=== PATIENT | female | born 1990 ===

== ENCOUNTER 2016-06-28 09:14 | Emergency (ER) | payer OTHER ==
[2016-06-28 09:21] VITALS: TEMP 97
[2016-06-28 09:22] VITALS: BMI 25.8
--- NOTE | 2016-06-28 09:41 | ED PDOC ---
HPI: Female Pain Time Seen by Provider: 06/28/16 09:26 Chief Complaint (Nursing): Abdominal Pain History Per: Patient History/Exam Limitations: no limitations Onset/Duration Of Symptoms: Gradual (today) Current Symptoms Are (Timing): Still Present Severity: Mild Quality Of Discomfort: Dull, Cramping Associated Symptoms: denies: Fever, Chills, Nausea, Vomiting, Diarrhea, Back Pain, Chest Pain, Constipation, Urinary Symptoms Alleviating Factors: None Additional History Per: Patient Additional Complaint(s): acc to pt she woke up with abd cramping then started to noticed vaginal bleeding pink then became bright red. pt states she is 8 weeks Past Medical History Reviewed: Historical Data, Nursing Documentation, Vital Signs Vital Signs: Last Vital Signs Temp 97 F L 06/28/16 09:20 Pulse 96 H 06/28/16 09:20 Resp BP 127/69 06/28/16 09:20 Pulse Ox 98 06/28/16 09:25 - Medical History PMH: Asthma, Depression Denies: Chronic Kidney Disease - Family History Family History: States: Unknown Family Hx - Living Arrangements Living Arrangements: With Family - Social History Current smoker - smoking cessation education provided: No - Immunization History Hx Tetanus Toxoid Vaccination: Yes (less than 5 years) Hx Influenza Vaccination: No Hx Pneumococcal Vaccination: No - Home Medications Home Medications: Ambulatory Orders Medication Instructions Recorded No Known Home Med 05/31/16 - Allergies Allergies/Adverse Reactions: Allergies Allergy/AdvReac Type Severity Reaction Status Date / Time Iodine and Iodide Containing Allergy VOMITING Verified 06/28/16 09:25 Produc Review of Systems ROS Statement: Except As Marked, All Systems Reviewed And Found Negative Constitutional: Negative for: Fever, Chills Cardiovascular: Negative for: Chest Pain, Palpitations Respiratory: Negative for: Cough Gastrointestinal: Negative for: Nausea, Vomiting, Abdominal Pain Genitourinary Female: Positive for: Vaginal Bleeding, Pelvic Pain. Negative for : Vaginal Discharge Physical Exam - Reviewed Nursing Documentation Reviewed: Yes Vital Signs Reviewed: Yes - Physical Exam Appears: Positive for: Well, No Acute Distress Head Exam: Positive for: ATRAUMATIC, NORMAL INSPECTION, NORMOCEPHALIC Eye Exam: Positive for: Normal appearance Neck: Positive for: Normal, Painless ROM, Supple Cardiovascular/Chest: Positive for: Regular Rate, Rhythm. Negative for: Edema, Murmur, Bradycardia, Tachycardia Respiratory: Positive for: Normal Breath Sounds. Negative for: Decreased Breath Sounds, Accessory Muscle Use, Crackles, Rales, Rhonchi, Stridor, Wheezing Gastrointestinal/Abdominal: Positive for: Normal Exam, Bowel Sounds, Soft. Negative for: Tenderness, Organomegaly Back: Positive for: Normal Inspection. Negative for: L CVA Tenderness, R CVA Tenderness, Vertebral Tenderness Extremity: Positive for: Normal ROM. 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 Negative for: Motor/Sensory Deficits - Laboratory Results Result Diagrams: 06/28/16 09:40 06/28/16 09:40 - ECG O2 Sat by Pulse Oximetry: 98 Pulse Ox Interpretation: Normal - Progress ED Course And Treament: IMPRESSION: Single live intrauterine gestation of approximately 8 weeks 3 days gestational age. No subchorionic hemorrhage. Normal yolk sac. heart rate 162. Cervix closed. advise close f/u with ob. all of pt's question were answered and pt agree's with plan Re-evaluation Time: 11:17 Condition: Improved Medical Decision Making Medical Decision Making: a positive Disposition - Clinical Impression Clinical Impression: Threatened - Patient ED Disposition Is Patient to be Admitted: No Counseled Patient/Family Regarding: Studies Performed, Diagnosis, Need For Followup - Disposition [facility] (2 to 3 days) Disposition: Routine/Home Disposition Time: 11:18 Condition: GOOD Instructions: Threatened Miscarriage (ED)
[2016-06-28 09:50] LABS: BASO % 0.3 % (0.0-2.0); EOS % 0.3 % (0.0-4.0); HEMATOCRIT 37.4 % (34.0-47.0); LYMPH # 2.1 K/uL (1.0-4.3); LYMPH % 20.7 % (20.0-40.0); MEAN CELL VOLUME 94.4 fl (81.0-99.0); MEAN CORPUSCULAR HEMOGLOBIN 31.2 pg (27.0-31.0); MEAN CORPUSCULAR HGB CONC 33.1 g/dL (33.0-37.0); MEAN PLATELET VOLUME 11.1 fl (7.2-11.7); MONO # 0.5 K/uL (0.0-0.8); MONO % 5.1 % (0.0-10.0); NEUT # 7.5 K/uL (1.8-7.0); NEUT % 73.6 % (50.0-75.0); RED CELL DISTRIBUTION WIDTH 12.5 % (11.5-14.5); WHITE BLOOD COUNT 10.2 K/uL (4.8-10.8)
[2016-06-28 09:58] LABS: ALB/GLOB RATIO 1.3 (1.0-2.1); ALKALINE PHOSPHATASE 47 U/L (38-126); ALT/SGPT 19 U/L (9-52); AST/SGOT 21 U/L (14-36); BILIRUBIN,TOTAL 0.5 mg/dl (0.2-1.3); BLOOD UREA NITROGEN 6 mg/dl (7-17); CALCIUM 9.3 mg/dL (8.4-10.2); CARBON DIOXIDE 24 mmol/L (22-30); CHLORIDE 105 mmol/L (98-107); GFR AFRICAN-AMERICAN > 60; GLUCOSE,RANDOM 85 mg/dL (65-105); POTASSIUM 3.8 MMOL/L (3.6-5.0); SODIUM 141 mmol/l (132-148); TOTAL PROTEIN 7.3 G/DL (6.3-8.2)
[2016-06-28 10:04] LABS: PARTIAL THROMBOPLASTIN TIME 26.8 SECONDS (23.3-32.5)
[2016-06-28 10:11] LABS: URINE BILIRUBIN NEGATIVE (NEGATIVE); URINE BLOOD SMALL (NEGATIVE); URINE COLOR YELLOW (YELLOW); URINE GLUCOSE (UA) NEG (Normal); URINE KETONE NEGATIVE (NEGATIVE); URINE LEUKOCYTE ESTERASE NEG Leu/uL (Negative); URINE PROTEIN 30 mg/dL (NEGATIVE); URINE UROBILINOGEN 0.2-1.0 mg/dL (0.2-1.0); WBC URINE 1 /hpf (0-5)
--- NOTE | 2016-06-28 11:03 | US ---
PROCEDURE: OB Pelvic Ultrasound HISTORY: vag bleed r/o ectopic COMPARISON: None available. FINDINGS: UTERUS: Single Live intrauterine gestation. CRL equivalent to 8 weeks 3 days gestatioin Gestational sac diameter equivalent to 8 weeks 2 days gestation age (Ultrasound estimated): 8 weeks 3 days Date of delivery (Ultrasound estimated) : 02/04/2017 Heart rate: 163 bpm. Jenny-gestational hemorrhage: None. 4 mm yolk sac visualized. Uterus measures 11.0 x 5.5 x 7.7 cm. No mass CERVIX: Long and closed. No cervical abnormality seen. RIGHT OVARY: Measures 3.7 x 1.7 x 2.6 cm. No mass. Normal flow. LEFT OVARY: Not visualized. FREE FLUID: Small amount of free fluid noted in cul-de-sac. OTHER FINDINGS: None. IMPRESSION: Single live intrauterine gestation of approximately 8 weeks 3 days gestational age. No subchorionic hemorrhage. Normal yolk sac. heart rate 162. Cervix closed.
[2016-06-28 12:17] VITALS: BP 126/78; PULSE 87; RESP 18; O2SAT 99
== END 2016-06-28 12:16 | disposition home or self-care (01) ==
LOC: H.ER 09:14
DX: O20.0 Threatened abortion (principal); O20.9 Hemorrhage in early pregnancy, unspecified; Z3A.08 8 weeks gestation of pregnancy

== ENCOUNTER 2016-09-09 08:24 | Emergency (ER) | payer OTHER ==
[2016-09-09] MEDS: Lactated Ringer's 1,000 ML IV SCH ×2 (09:30→11:14)
[2016-09-09 10:09] LABS: BASO % 0.3 % (0.0-2.0); EOS % 0.4 % (0.0-4.0); HEMATOCRIT 28.2 % (34.0-47.0); LYMPH # 1.5 K/uL (1.0-4.3); LYMPH % 16.3 % (20.0-40.0); MEAN CELL VOLUME 93.4 fl (81.0-99.0); MEAN CORPUSCULAR HEMOGLOBIN 31.9 pg (27.0-31.0); MEAN CORPUSCULAR HGB CONC 34.2 g/dL (33.0-37.0); MEAN PLATELET VOLUME 10.7 fl (7.2-11.7); MONO # 0.5 K/uL (0.0-0.8); MONO % 5.7 % (0.0-10.0); NEUT # 6.9 K/uL (1.8-7.0); NEUT % 77.3 % (50.0-75.0)
--- NOTE | 2016-09-09 10:26 | OBHP ---
Datetime: 09/09/2016 10:00 IP Adm Impression: , intrauterine ; No Active Labor IP Admit Plan: Observation/Evaluation; Discharge home Admit Comment, IP Provider: The patient is a 26-year-old 2 para 1 last menstrual period 07/2016 estimated gestational age 19 weeks estimated due date 01/31/2017 patient presents to labor and delivery complaining of abdominal cramps for 24 hours duration patient denies any vaginal bleeding o r any leakage of fluid she reports good movement. Patient denies any complications. Past medical history asthma and depression Medications vitamins albuterol Lexapro Past surgical history patient had foot surgery Patient is allergic to iodine Social history patient denies alcohol tobacco use Review of systems patient denies headache chest pain shortness of breath palpitations nausea vomit ing diarrhea dysuria vaginal bleeding or cold intolerance easy bruisability musculoskeletal Cerner ne urological complaints Vital signs stable afebrile Physical exam see notes Intrauterine at 19 weeks abdominal cramps Most likely round ligament discomfort Medical records reviewed from Dr. [place] office Urine analysis and lab work sent Tocometer Anticipate discharge Plan of care discussed with PMD Dr. Sandoval Seo Pelvic Type - PN: Adequate Extremities - PN: Normal Abdomen - PN: Normal Back - PN: Normal Breast - PN: Normal Lungs - PN: Normal Heart - PN: Normal Thyroid - PN: Normal Neurologic - PN: Normal HEENT - PN: Normal General - PN: Normal FHR - Baseline A Provider: 145 Gestation - Est Wks by US: 19.0 EGA AdmitDate IP: 19.3 Vital Signs Provider: Reviewed IP Chief Complaint: Maternal discomfort NICHD Decel Fetus A IP Provider: None Dilatation, Provider: 0 Effacement, Provider: 0 Station, Provider: 0 Genitourinary Exam: Normal DTRs - PN: Normal
[2016-09-09 10:28] LABS: ALB/GLOB RATIO 1.3 (1.0-2.1); ALKALINE PHOSPHATASE 54 U/L (38-126); ALT/SGPT 43 U/L (9-52); AST/SGOT 33 U/L (14-36); BILIRUBIN,TOTAL 0.3 mg/dl (0.2-1.3); BLOOD UREA NITROGEN 3 mg/dl (7-17); CALCIUM 9.2 mg/dL (8.4-10.2); CARBON DIOXIDE 23 mmol/L (22-30); CHLORIDE 105 mmol/L (98-107); GFR AFRICAN-AMERICAN > 60; GLUCOSE,RANDOM 77 mg/dL (65-105); POTASSIUM 3.6 MMOL/L (3.6-5.0); RBC URINE 4 /hpf (0-3); SODIUM 136 mmol/l (132-148); TOTAL PROTEIN 6.8 G/DL (6.3-8.2); URINE BILIRUBIN NEGATIVE (NEGATIVE); URINE BLOOD NEGATIVE (NEGATIVE); URINE COLOR AMBER (YELLOW); URINE GLUCOSE (UA) NEG (Normal); URINE KETONE NEGATIVE (NEGATIVE); URINE LEUKOCYTE ESTERASE NEG Leu/uL (Negative); URINE PROTEIN 30 mg/dL (NEGATIVE); URINE UROBILINOGEN 0.2-1.0 mg/dL (0.2-1.0); WBC URINE 9 /hpf (0-5)
[2016-09-09 10:31] LABS: URINE BACTERIA RARE (<OCC)
== END 2016-09-09 11:15 | disposition home or self-care (01) ==
LOC: H.EROB2 08:24 → H.EROB 08:25 → H.EROB2 11:15
DX: O26.92 Pregnancy related conditions, unspecified, second trimester (principal); R10.2 Pelvic and perineal pain; O47.03 False labor before 37 completed weeks of gestation, third trimester; Z3A.19 19 weeks gestation of pregnancy

== ENCOUNTER 2016-09-19 17:02 | Emergency (ER) | payer OTHER ==
[2016-09-22 18:45] LABS: HEMOGLOBIN 8.9 g/dL (12.0-16.0); MEAN CELL VOLUME 93.3 fl (81.0-99.0); MEAN CORPUSCULAR HEMOGLOBIN 31.5 pg (27.0-31.0); MEAN CORPUSCULAR HGB CONC 33.8 g/dL (33.0-37.0); RBC 2.84 Mil/uL (3.80-5.20); RED CELL DISTRIBUTION WIDTH 13.3 % (11.5-14.5); WHITE BLOOD COUNT 9.3 K/uL (4.8-10.8)
[2016-09-23 17:24] VITALS: BMI 21.6
--- NOTE | 2016-09-24 06:44 | CARD ---
APPROVED REPORT EKG Measurement Heart [id number] <Conclusion> Normal sinus rhythm Low voltage QRS Borderline ECG
--- NOTE | 2016-09-28 15:18 | OBHP ---
Datetime: 09/19/2016 18:52 IP Adm Impression: , intrauterine ; No Active Labor IP Admit Plan: Observation/Evaluation Admit Comment, IP Provider: This is a 26 y/o with a PMHx of asthma edc 01/31 at 20 weeks GA as per 1st trimester US presenting with SOB and palpitations that began 2 hours ago. SOB is alleviating after use of Albuterol pump. Pt had this episode while seated at desk. She denies increased physical activity today. Pt reports last use of inhaler prior to today was 2 months ago. No vaginal bleeding, no LOF, no ctx, taking PNV. Pt denies CP, headache,syncope, focal weakness, parasthesias. Medications: albuterol PRN Allergies: Iodine. PMHx: asthma-usually activity induced, depression and anxiety. PSHx: unspecified foot surgery. 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 1 . Several syncopal episodes during l ast with NO urinary sphincter control or tongue bitten. SHx: smoker, NO alcohol or recreational drugs. Assesment: 26 y.o. with SOB and palpitations. Pt used Albuterol which could be exacerbating p alpitations. Plan: EKG ordered, results unremarkable,normal sinus rhythm , 93 bpm. CBC ordered. cont monitoring Pt will be observed in [facility] d/w Dr Mira Santoyo PGY1 [facility] addendum: pt seen _ examined by me. Agree with abve with following additions. Denies syncopal episodes with current preg. She denies bladder or bowel incontinence associated with syncopal episode experienced in past. o: hgb 8.9 p: pt d/w dr sandoval. d/c home Fe supplem bid f/u within 1wk with Dr. Sandoval. Extremities - PN: Normal Abdomen - PN: Normal Lungs - PN: Normal Heart - PN: Normal Neurologic - PN: Normal HEENT - PN: Normal General - PN: Normal FHR - Baseline A Provider: 150 Contraction Comments Provider: no EGA AdmitDate IP: 20.6 IP Chief Complaint: Other NICHD Decel Fetus A IP Provider: None Genitourinary Exam: Normal
== END 2016-09-19 23:00 | disposition home or self-care (01) ==
LOC: H.EROB2 17:02
DX: O47.02 False labor before 37 completed weeks of gestation, second trimester (principal); Z3A.21 21 weeks gestation of pregnancy; O26.92 Pregnancy related conditions, unspecified, second trimester; R06.02 Shortness of breath; J45.909 Unspecified asthma, uncomplicated

== ENCOUNTER 2017-10-03 16:41 | Emergency (ER) | payer OTHER ==
[2017-10-03 16:41] VITALS: BMI 27.9
[2017-10-03] MEDS ORDERED: Sodium Chloride 0.9% 1,000 ML IV STA (17:02)
--- NOTE | 2017-10-03 17:06 | ED PDOC ---
HPI: Headache Time Seen by Provider: 10/03/17 16:53 Chief Complaint (Nursing): Headache Chief Complaint (Provider): Headache History Per: Patient History/Exam Limitations: no limitations Onset/Duration Of Symptoms: Days (Wednesday) Current Symptoms Are (Timing): Still Present Additional Complaint(s): Pt. with headaches and dizziness since Wednesday. Also fever. Takes motrin and tylenol, that reduce it, but it comes back. No numbness, tingles. No abd pain , dysuria. No cough, runny nose. Has neck pain mild on moving neck and body aches. Headaches not worst in her life. Past Medical History Reviewed: Nursing Documentation, Vital Signs Vital Signs: Last Vital Signs Temp 102 F H 10/03/17 16:44 Pulse 121 H 10/03/17 16:44 Resp 22 10/03/17 16:44 BP 116/72 10/03/17 16:44 Pulse Ox 97 10/03/17 16:44 - Medical History PMH: Asthma, Depression Denies: Diabetes, HTN, Chronic Kidney Disease - Surgical History Surgical History: No Surg Hx - Family History Family History: States: Unknown Family Hx - Living Arrangements Living Arrangements: With Family - Social History Alcohol: None Drugs: Denies - Immunization History Hx Tetanus Toxoid Vaccination: Yes (less than 5 years) Hx Influenza Vaccination: No Hx Pneumococcal Vaccination: No - Home Medications Home Medications: Ambulatory Orders Medication Instructions Recorded Pnv No.95/Ferrous Fum/Folic AC [Hm 01/23/17 Tablet] Ibuprofen [Motrin Tab] 800 mg PO Q4H PRN #30 tab 01/27/17 Ciprofloxacin HCl [Cipro] 250 mg PO BID #6 tab 10/03/17 Ibuprofen [Motrin] 600 mg PO TID 7 Days tab 10/03/17 - Allergies Allergies/Adverse Reactions: Allergies Allergy/AdvReac Type Severity Reaction Status Date / Time Iodine and Iodide Containing Allergy VOMITING Verified 10/03/17 16:44 Produc Review of Systems ROS Statement: Except As Marked, All Systems Reviewed And Found Negative Constitutional: Positive for: Fever Musculoskeletal: Positive for: Neck Pain Neurological: Positive for: Headache, Dizziness Physical Exam - Reviewed Nursing Documentation Reviewed: Yes Vital Signs Reviewed: Yes - Physical Exam Appears: Positive for: Non-toxic, No Acute Distress Head Exam: Positive for: ATRAUMATIC, NORMAL INSPECTION, NORMOCEPHALIC Skin: Positive for: Normal Color, Warm, DRY Eye Exam: Positive for: EOMI, Normal appearance, PERRL ENT: Positive for: Normal ENT Inspection. Negative for: Nasal Congestion, Pharyngeal Erythema, Tonsillar Exudate Neck: Negative for: Painless ROM (pain on movement mild) Cardiovascular/Chest: Positive for: Regular Rate, Rhythm Respiratory: Positive for: CNT, Normal Breath Sounds Gastrointestinal/Abdominal: Positive for: Normal Exam, Bowel Sounds, Soft. Negative for: Tenderness Back: Positive for: Normal Inspection. Negative for: L CVA Tenderness, R CVA Tenderness Extremity: Positive for: Normal ROM. 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 Negative for: Motor/Sensory Deficits, Aphasia, Facial Droop - Laboratory Results Result Diagrams: 10/03/17 17:28 10/03/17 17:28 - ECG O2 Sat by Pulse Oximetry: 97 Pulse Ox Interpretation: Normal - Radiology X-Ray: Interpreted by Me, Viewed By Me X-Ray Interpretation: No Acute Disease - CT Scan/US ct Other Rad Studies (CT/US): Read By Radiologist Other Rad Interpretation: no acute - Progress ED Course And Treament: 2047: No headache or neck pain. AAOx3. Has capacity to make decisions. Pain free. Tolerated PO. Does admit to increased freq of urination. Aware unclear source of headache she had. She is refusing LP at this time. Aware we can't rule out bleeding or meningitis without the LP. She understands possible or decreased functioning from it these causes. She still refuses and will come back if she chooses to have it done. Disposition - Clinical Impression Clinical Impression: UTI (urinary tract infection), Headache - Patient ED Disposition Is Patient to be Admitted: No Counseled Patient/Family Regarding: Studies Performed, Diagnosis, Need For Followup, Rx Given - Disposition Referrals: [facility] [Outside] - 10/04/17 Disposition: Routine/Home Disposition Time: 20:54 Condition: STABLE Additional Instructions: You are refusing to get a lumbar puncture at this time. Come back soon as possible for further evaluation and treatment. We are not able to rule out if you have a bleed in the head or meningitis. You can or decreased functioning from it. We will give you antibiotics for the urine infection you have. Prescriptions: Ciprofloxacin HCl [Cipro] 250 mg PO BID #6 tab Ibuprofen [Motrin] 600 mg PO TID 7 Days tab Instructions: Urinary Tract Infection, Adult (DC), Headache, Adult Forms: [facility] (Croatian), [facility] ED School/Work Excuse
[2017-10-03 17:38] LABS: VENOUS BLOOD GAS BASE EXCESS -1.1 mmol/L (0.0-2.0); VENOUS BLOOD GAS PCO2 42 mmHg (40-60); VENOUS BLOOD GAS PO2 24 mm/Hg (30-55); VENOUS BLOOD PH 7.37 (7.32-7.43)
[2017-10-03 17:38] LABS: BASO % 0.2 % (0.0-2.0); HEMOGLOBIN 12.3 g/dL (12.0-16.0); LYMPH % 9.4 % (20.0-40.0); MEAN CELL VOLUME 92.8 fl (81.0-99.0); MEAN CORPUSCULAR HGB CONC 34.5 g/dL (33.0-37.0); MEAN PLATELET VOLUME 10.5 fl (7.2-11.7); MONO # 0.7 K/uL (0.0-0.8); MONO % 6.5 % (0.0-10.0); NEUT # 8.8 K/uL (1.8-7.0); NEUT % 83.9 % (50.0-75.0); PLATELET COUNT 188 K/uL (130-400); RBC 3.86 Mil/uL (3.80-5.20); RED CELL DISTRIBUTION WIDTH 12.6 % (11.5-14.5); WHITE BLOOD COUNT 10.5 K/uL (4.8-10.8)
[2017-10-03 17:43] LABS: ALB/GLOB RATIO 1.2 (1.0-2.1); ALBUMIN 4.4 g/dL (3.5-5.0); ALT/SGPT 21 U/L (9-52); AST/SGOT 25 U/L (14-36); BLOOD UREA NITROGEN 11 mg/dl (7-17); CALCIUM 9.4 mg/dL (8.4-10.2); GFR AFRICAN-AMERICAN > 60; GFR NON-AFRICAN AMERICAN > 60
[2017-10-03 19:29] LABS: SQUAMOUS EPITHIAL 9 /hpf (0-5); URINE BILIRUBIN NEGATIVE (NEGATIVE); URINE BLOOD NEGATIVE (NEGATIVE); URINE CLARITY CLOUDY (Clear); URINE COLOR AMBER (YELLOW); URINE GLUCOSE (UA) NEG (Normal); URINE LEUKOCYTE ESTERASE MOD Leu/uL (Negative); URINE PROTEIN 30 mg/dL (NEGATIVE)
[2017-10-03 19:40] LABS: BANDS 6 % (0-2); LYMPHOCYTE 9 % (20-50); MONOCYTE 2 % (0-10); MYELOCYTE 2 % (0-0); NEUTROPHIL 80 % (42-75); REACTIVE LYMPHOCYTES 1 % (0-0); TOTAL CELLS COUNTED 100
[2017-10-03 19:41] LABS: PLATELET ESTIMATE NORMAL (NORMAL)
[2017-10-03 21:18] VITALS: TEMP 98.7
[2017-10-03 21:35] VITALS: BP 131/77; PULSE 88; RESP 16; O2SAT 99
--- NOTE | 2017-10-04 08:24 | RAD ---
Date of service: 10/03/2017 HISTORY: fever COMPARISON: 04/07/2015. FINDINGS: LUNGS: The lungs are well inflated and clear pulmonary disease. PLEURA: No significant pleural effusion identified, no pneumothorax apparent. CARDIOVASCULAR: Normal. OSSEOUS STRUCTURES: No significant abnormalities. VISUALIZED UPPER ABDOMEN: Normal. OTHER FINDINGS: None. IMPRESSION: No active pulmonary disease.
--- NOTE | 2017-10-04 09:12 | CT ---
Date of service: 10/03/2017 PROCEDURE: CT HEAD WITHOUT CONTRAST. HISTORY: Headache COMPARISON: 04/07/2015. TECHNIQUE: Axial computed tomography images were obtained through the head/brain without intravenous contrast. Radiation dose: Total exam DLP = 745.42 mGy-cm. This CT exam was performed using one or more of the following dose reduction techniques: Automated exposure control, adjustment of the mA and/or kV according to patient size, and/or use of iterative reconstruction technique. FINDINGS: HEMORRHAGE: No intracranial hemorrhage. BRAIN: Ash-white matter differentiation is preserved. There is no mass, mass effect or abnormal extra-axial fluid collection. There is no territorial infarction. The midline sagittal structures are normal. VENTRICLES: The ventricles are normal in size, shape and configuration. CALVARIUM: The skull base and calvarium are normal. PARANASAL SINUSES: Predominantly clear. MASTOID AIR CELLS: Predominantly clear. OTHER FINDINGS: None. IMPRESSION: No acute intracranial abnormality. A preliminary report was provided by [employer] [facility].
== END 2017-10-03 21:35 | disposition home or self-care (01) ==
LOC: H.ER 16:41
DX: N39.0 Urinary tract infection, site not specified (principal); R51 Headache
CPT/HCPCS: 70450; 71045; 80053; 81003; 81025; 82803; 85025; 87040; 87070; 87086; 87181; 87430; 87804; 96374; 99285; J2765; J7030

== ENCOUNTER 2018-04-08 09:24 | Emergency (ER) | payer OTHER ==
[2018-04-08 09:24] VITALS: BMI 27.9
[2018-04-08 09:56] VITALS: RESP 18
--- NOTE | 2018-04-08 10:34 | ED PDOC ---
HPI: Abdomen Additional Complaint(s): This is 27 y/o female with no significant PMH comes to the ER c/o diarrhea, vomiting and burning b/l Lower abdo pain. As per patient, NB diarrhea and buring abdo pain started 3 days ago, >5x loose diarrheas/day and 7/10 constant burning in lower abdomen, poor appetite. Reports 6 episodes of NBNB vomiting since last night which prompted patient to come to the ER. 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 Denies dysuria, SOB, cough, congestion or chest pain. reports chills but no fever. PMH: Asthma PSH: 2x c-sections Meds: Denies Allg: Iodine SH: Denies alcohol, smoking or drug use FH: Denies any cancers or ND/Stroke ROS: As per HPI <Simeon Aguayo - Last Filed: 04/08/18 12:48> Additional Complaint(s): Vomit and diarrhea. Burning abd. 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 <Zi Dolan - Last Filed: 04/08/18 13:51> Time Seen by Provider: 04/08/18 10:07 Chief Complaint (Nursing): Abdominal Pain Past Medical History Vital Signs: Last Vital Signs Temp 98.5 F 04/08/18 09:55 Pulse 91 H 04/08/18 09:55 Resp 18 04/08/18 09:55 BP 137/57 L 04/08/18 09:55 Pulse Ox 97 04/08/18 09:55 - Medical History PMH: Asthma, Depression Denies: Diabetes, HTN, Chronic Kidney Disease - Family History Family History: States: Unknown Family Hx - Immunization History Hx Tetanus Toxoid Vaccination: Yes (less than 5 years) Hx Influenza Vaccination: No Hx Pneumococcal Vaccination: No <Simeon Aguayo - Last Filed: 04/08/18 12:48> Vital Signs: Last Vital Signs Temp 98.5 F 04/08/18 09:55 Pulse 91 H 04/08/18 09:55 Resp 18 04/08/18 09:55 BP 137/57 L 04/08/18 09:55 Pulse Ox 97 04/08/18 12:49 <Zi Dolan - Last Filed: 04/08/18 13:51> - Home Medications Home Medications: Ambulatory Orders Medication Instructions Recorded Pnv No.95/Ferrous Fum/Folic AC [Hm 01/23/17 Tablet] Ibuprofen [Motrin Tab] 800 mg PO Q4H PRN #30 tab 01/27/17 Ciprofloxacin HCl [Cipro] 250 mg PO BID #6 tab 10/03/17 Ibuprofen [Motrin] 600 mg PO TID 7 Days tab 10/03/17 Famotidine [Pepcid] 20 mg PO DAILY PRN #6 tab 04/08/18 Ondansetron [Zofran] 4 mg PO Q8H PRN #6 tab 04/08/18 - Allergies Allergies/Adverse Reactions: Allergies Allergy/AdvReac Type Severity Reaction Status Date / Time Iodine and Iodide Containing Allergy VOMITING Verified 04/08/18 09:57 Produc Review of Systems Constitutional: Negative for: Fever, Chills, Sweats Eyes: Negative for: Pain ENT: Negative for: Ear Pain, Ear Discharge, Nose Pain Cardiovascular: Negative for: Chest Pain, Palpitations Respiratory: Negative for: Cough, Shortness of Breath Gastrointestinal: Positive for: Nausea, Vomiting, Abdominal Pain (Burning ), Diarrhea Genitourinary Female: Negative for: Dysuria, Vaginal Discharge Musculoskeletal: Negative for: Neck Pain Skin: Negative for: Rash Neurological: Negative for: Weakness, Numbness <Simeon Aguayo - Last Filed: 04/08/18 12:48> Physical Exam - Physical Exam Appears: Positive for: Well, No Acute Distress Head Exam: Positive for: NORMAL INSPECTION Skin: Positive for: Normal Color, Warm Eye Exam: Positive for: Normal appearance ENT: Positive for: Normal ENT Inspection Neck: Positive for: Normal Cardiovascular/Chest: Positive for: Regular Rate, Rhythm Respiratory: Positive for: Normal Breath Sounds. Negative for: Decreased Breath Sounds, Accessory Muscle Use Gastrointestinal/Abdominal: Positive for: Normal Exam, Bowel Sounds (+), Soft. Negative for: Tenderness Back: Positive for: Normal Inspection. Negative for: L CVA Tenderness, R CVA Tenderness Extremity: Positive for: Normal ROM Neurologic/Psych: Positive for: Alert, Oriented <Simeon Aguayo - Last Filed: 04/08/18 12:48> - Physical Exam Gastrointestinal/Abdominal: Positive for: Soft. Negative for: Tenderness <Zi Dolan - Last Filed: 04/08/18 13:51> - Laboratory Results Result Diagrams: 04/08/18 11:25 04/08/18 11:25 - ECG O2 Sat by Pulse Oximetry: 97 - Progress ED Course And Treament: A/P: 27 y/o female with no significant PMH comes to the ER c/o diarrhea, vomiting and burning b/l Lower abdo pain. Viral gastroenteritis. - CBC, CMP, Lipase - U preg, UA - Bentyl, Pepcid, Toradol, 1 L NSR, Zofran - Influenza A/B - Reexamination Case discussed with Dr. Dolan CBC, CMP, UA reviewed: WNL Negative Influenza Re-evaluation Time: 12:48 (Still c/o burning abdominal pain) Condition: Improving,but remains with symptoms <Simeon Aguayo - Last Filed: 04/08/18 12:48> - Laboratory Results Result Diagrams: 04/08/18 11:25 04/08/18 11:25 Lab Results: Total Bilirubin 0.7 mg/dl (0.2-1.3) 04/08/18 11:25 AST 21 U/L (14-36) 04/08/18 11:25 ALT 23 U/L (9-52) 04/08/18 11:25 Alkaline Phosphatase 76 U/L (38-126) 04/08/18 11:25 Total Protein 8.4 G/DL (6.3-8.2) H 04/08/18 11:25 Albumin 4.8 g/dL (3.5-5.0) 04/08/18 11:25 Globulin 3.6 gm/dL (2.2-3.9) 04/08/18 11:25 Albumin/Globulin Ratio 1.3 (1.0-2.1) 04/08/18 11:25 Lipase 45 U/L (23-300) 04/08/18 11:25 - Progress ED Course And Treament: 1351: Feels much better. AAOx3. Pain free. Tolerated PO. Fu with pcp. No pain. <Zi Dolan - Last Filed: 04/08/18 13:51> Disposition <Simeon Aguayo - Last Filed: 04/08/18 12:48> Counseled Patient/Family Regarding: Studies Performed, Diagnosis - Disposition Disposition Time: 13:51 <Zi Dolan - Last Filed: 04/08/18 13:51> - Clinical Impression Clinical Impression: Abdominal cramps, Vomiting and diarrhea - Disposition Referrals: [facility] [Outside] - 04/11/18 Condition: STABLE Additional Instructions: Return if not better in 3 days. Prescriptions: Famotidine [Pepcid] 20 mg PO DAILY PRN #6 tab PRN Reason: Pain Ondansetron [Zofran] 4 mg PO Q8H PRN #6 tab PRN Reason: Nausea/Vomiting Instructions: Diarrhea in Adolescents and Adults, Nausea and Vomiting, Adult (DC), Stomach Ache and Stomach Upset Forms: [facility] ED School/Work Excuse
[2018-04-08] MEDS ORDERED: Sodium Chloride 0.9% 1,000 ML IV STA (10:44)
[2018-04-08 11:33] LABS: BASO % 0.1 % (0.0-2.0); HEMOGLOBIN 13.9 g/dL (12.0-16.0); LYMPH # 0.5 K/uL (1.0-4.3); LYMPH % 5.9 % (20.0-40.0); MEAN CELL VOLUME 92.4 fl (81.0-99.0); MEAN CORPUSCULAR HEMOGLOBIN 31.1 pg (27.0-31.0); MEAN CORPUSCULAR HGB CONC 33.7 g/dL (33.0-37.0); MEAN PLATELET VOLUME 11.5 fl (7.2-11.7); MONO # 0.2 K/uL (0.0-0.8); MONO % 2.7 % (0.0-10.0); NEUT # 7.7 K/uL (1.8-7.0); NEUT % 91.3 % (50.0-75.0); NRBC % 0.1 % (0.0-0.0); PLATELET COUNT 171 K/uL (130-400); RBC 4.47 Mil/uL (3.80-5.20); RED CELL DISTRIBUTION WIDTH 12.8 % (11.5-14.5); WHITE BLOOD COUNT 8.4 K/uL (4.8-10.8)
[2018-04-08 11:49] LABS: ALB/GLOB RATIO 1.3 (1.0-2.1); ALBUMIN 4.8 g/dL (3.5-5.0); ALT/SGPT 23 U/L (9-52); AST/SGOT 21 U/L (14-36); BLOOD UREA NITROGEN 9 mg/dl (7-17); GFR NON-AFRICAN AMERICAN > 60; LIPASE 45 U/L (23-300)
[2018-04-08 12:39] LABS: LARGE PLATELETS PRESENT; LYMPHOCYTE 7 % (20-50); MONOCYTE 3 % (0-10); NEUTROPHIL 90 % (42-75); PLATELET ESTIMATE NORMAL (NORMAL); TOTAL CELLS COUNTED 100
[2018-04-08] MEDS ORDERED: Sodium Chloride 0.9% 10 ML IV ONE (13:58)
[2018-04-08 14:18] VITALS: BP 101/57; PULSE 86; TEMP 98.6; O2SAT 98
== END 2018-04-08 14:15 | disposition home or self-care (01) ==
LOC: H.ER 09:24
DX: R10.9 Unspecified abdominal pain (principal); R11.10 Vomiting, unspecified; R19.7 Diarrhea, unspecified
CPT/HCPCS: 80053; 81025; 83690; 85025; 87804; 96361; 96374; 96375; 99284; C9113; J1885; J2405; J7030